=== PATIENT | male | born 1970 | race Caucasian/White ===

== ENCOUNTER 2018-09-17 16:35 | Emergency (ER) | payer SELFPAY ==
[~2018-09-17] VITALS: Ht 165.1 cm; Wt 65.4 kg
[2018-09-17 16:58] VITALS: Ht 165.1 cm; Wt 65.4 kg
[2018-09-17 19:43] VITALS: BP 159/92
== END 2018-09-17 19:43 | disposition home or self-care (01) ==
LOC: ED 16:35
DX: K04.7 Periapical abscess without sinus (principal)
CPT/HCPCS: J0295